=== PATIENT | female | born 1990 | race Caucasian/White ===

== ENCOUNTER 2018-07-05 20:52 | Emergency (ER) | payer OTHER ==
[~2018-07-05] VITALS: Ht 157.5 cm; Wt 73.0 kg
[2018-07-05 20:52] VITALS: BP 106/76
--- NOTE | 2018-07-05 20:52 | NUR ---
PATIENT AMBULATED TO ER BED 8.
--- NOTE | 2018-07-05 21:20 | NUR ---
PT BIB MOTHER C/O N/V, DIZZINESS. PT STATES AFTER EATING BREAKFAST SHE HAS TROWN UP "ALL DAY", PT STATES EMESIS IS YELLOW. 0/10 PAIN AT THIS TIME. --MOIST MUCOUS MEMBRANS. BOWEL SOUNDS ACTIVE X4 QUAD. CAP REFIL <3. NO EDEMA PRESENT. SKIN WARM, DRY AND INTACT. PMH: DENIES RX: DENIES
[2018-07-05] MEDS ORDERED: ONDANSETRON 4 MG ODT PO ONE (21:45)
[2018-07-05 21:58] LABS: BASOPHILS % (AUTO) 0.5 % (0.0-2.0); EOSINOPHILS # (AUTO) 0.1 K/uL (0-0.4); EOSINOPHILS % (AUTO) 0.7 % (0.0-4.0); HEMATOCRIT 40.1 % (36-48); HEMOGLOBIN 13.2 g/dL (12.0-16.0); LYMPHOCYTES # (AUTO) 1.1 K/uL (2.5-16.5); MEAN CORPUSCULAR HEMOGLOBIN 30 pg (27-31); MEAN CORPUSCULAR HGB CONC 33 g/dL (33-37); MEAN CORPUSCULAR VOLUME 91.3 fL (80-94); MONOCYTES # (AUTO) 0.6 K/uL (0.8-1.0); MONOCYTES % (AUTO) 6.4 % (1.7-9.3); NEUTROPHILS # (AUTO) 6.9 K/uL (1.8-7.7); NEUTROPHILS % (AUTO) 79.4 % (42.2-75.2); PLATELET COUNT (AUTO) 237 K/uL (140-450); RED BLOOD CELL COUNT(AUTO) 4.39 MIL/uL (4.20-5.40); RED CELL DISTRIBUTION WIDTH 14.8 % (11.6-13.7); WHITE BLOOD COUNT (AUTO) 8.8 K/uL (4.8-10.8)
[2018-07-05 22:09] LABS: ANION GAP 15.5 (8-16); CARBON DIOXIDE 26.3 mmol/L (21-32); CREATININE 0.6 mg/dL (0.6-1.3); POTASSIUM 3.8 mmol/L (3.5-5.1)
[2018-07-05 22:15] LABS: TOTAL BILIRUBIN 0.3 mg/dL (0.0-1.0)
== END 2018-07-05 23:06 | disposition home or self-care (01) ==
LOC: MED 20:52
DX: R11.10 Vomiting, unspecified (principal)
CPT/HCPCS: 36415; 80053; 81002; 81025; 85025; 99283; Q0162